=== PATIENT | female | born 1960 | race Caucasian/White ===

== ENCOUNTER → 2018-01-17 | Outpatient (CLI) | payer OTHER ==
--- NOTE | 2018-01-18 08:09 | TST ---
[place] [address] [facility] STRESS TEST Name: LESLYE FRY Room: [facility]#: [id number] Admission: 01/17/18 Attend Phys: Ike Tan, Discharge: Date of : 62 Date of Service: 01/17/18 1627 Report #: [id number] THIS REPORT FOR: //name// CC: Ike Tan MD DATE OF SERVICE: 01/17/2018 REFERRING PHYSICIANS: Dr. Tan and Dr. Nobles. PROCEDURE: Standard Duncan protocol exercise stress test. INDICATION: Chest pain and dyspnea and palpitations. CARDIAC HISTORY: None. RISK FACTORS: Age greater than 55 and tobacco use and family history of coronary artery disease. The patient exercised per standard Duncan protocol for 4 minutes and 15 seconds. The resting blood pressure was 125/84 with a resting heart rate of 92 beats per minute. At peak exercise, the blood pressure was 169/86 mmHg with a peak stress heart rate of 125 beats per minute. In recovery, the blood pressure was 129/83 mmHg with a recovery heart rate of 98 beats per minute. The patient achieved 76% of the age predicted maximum heart rate and an energy expenditure equivalent to 6.12 METs. The baseline 12-lead EKG shows sinus rhythm with no significant ST or T-wave abnormalities. EKGs obtained during and post-exercise stress showed sinus rhythm and sinus tachycardia with no significant ST or T-wave changes when compared to baseline. There were no stress-induced arrhythmias. The patient complained of dyspnea, but no chest discomfort with exercise. IMPRESSION: 1. Clinical response, nonischemic. 2. EKG response, nonischemic. The patient exhibited significant exercise incapacity. Stress test was nondiagnostic as the patient failed to achieve target heart rate. Would recommend repeat stress testing with alternate stress and imaging modalities. CONCLUSION: This stress test is nondiagnostic as the [place] [address] [employer] STRESS TEST Name: LESLYE FRY Room: [facility]#: [id number] Admission: 01/17/18 Attend Phys: Ike Tan, Discharge: Date of : 62 Date of Service: 01/17/181626 Report #: [id number] target heart rate. There was no evidence of ischemia at the level of stress achieved. <ELECTRONICALLY SIGNED> By: Yao Nobles MD, FACC 01/18/18808 26 36 Yao Nobles MD, FACC /nt
== END ==
LOC: M.CRD 10:49
DX: Z12.2 Encounter for screening for malignant neoplasm of respiratory organs (principal); J44.9 Chronic obstructive pulmonary disease, unspecified; R07.9 Chest pain, unspecified; R06.00 Dyspnea, unspecified; R00.2 Palpitations; R00.0 Tachycardia, unspecified

== ENCOUNTER → 2018-03-01 | Outpatient (CLI) | payer OTHER | LOC: M.CT 09:05 | DX: Z13.6 Encounter for screening for cardiovascular disorders (principal) ==